=== PATIENT | male | born 1965 | race Caucasian/White ===

== ENCOUNTER 2017-11-15 07:40 | Day surgery (SDC) | payer BC ==
[~2017-11-15] VITALS: Ht 172.7 cm; Wt 72.0 kg
[~2017-11-15 07:40] MED LIST: BUPR-47 PO; FINA5TAB41 PO; SODIUM CHLORIDE 0.9% 1000ML 1,000 ML IV ONE; TAMS0.4C32 PO
[2017-11-15 08:20] VITALS: BP 107/74
[2017-11-15] MEDS ORDERED: PROPOFOL 10 MG/ML 20ML VIAL IV ONE ×2 (10:47)
[2017-11-15 11:01] VITALS: BP 94/59
== END 2017-11-15 12:30 | disposition home or self-care (01) ==
LOC: DAH 07:40 → ENDO 07:40
PROVIDERS: ATTEND Internal Medicine Gastroenterology
DX: Z12.11 Encounter for screening for malignant neoplasm of colon (principal); K62.1 Rectal polyp; F32.9 Major depressive disorder, single episode, unspecified; N40.0 Benign prostatic hyperplasia without lower urinary tract symptoms
CPT/HCPCS: 45380; 88305; A4606; A4649; J2704 ×2; J7030